=== PATIENT | male | born 1975 | race Caucasian/White ===

== ENCOUNTER 2025-01-11 09:10 | Day surgery (SDC) | payer OTHER, SELFPAY ==
[2025-01-09 13:46] VITALS: BMI 27.6
--- NOTE | 2025-01-10 15:28 | ESHP_ITS ---
RE: ALEXIS SMART : 1975 DATE OF ADMISSION: 01/10/2025 HISTORY OF PRESENT ILLNESS: The patient is from [facility]. He is a 48-year-old gentleman with undescended right testis. PHYSICAL EXAMINATION: Clinical examination reveals: HEENT: Normal. NECK: Supple. LUNGS: Clear. CARDIOVASCULAR: Heart sounds are normal. ABDOMEN: Soft without any organomegaly, guarding, or rigidity. EXTREMITIES: His left testis is down in the scrotum. The right scrotum is empty. In the right groin, it is difficult to identify if there is any testis. IMPRESSION: Undescended right testis, which is not palpable. PLAN: Right testis exploration through the inguinal approach and possible right orchiectomy. Plan, procedure, risks, and complications have been discussed with the patient. The patient has understood and agreed to proceed. Thank you very much for your kind referral. cc: [facility] DT: 13:15:28 TT: 15:26:00 Ref: [id number] - TID: [id number]
[2025-01-11] VITALS (8 sets, daily range): BP systolic 135–151; BP diastolic 89–103; PULSE 80–102; RESP 15–19; TEMP 36.9–37.2; O2SAT 95–100; BMI 28.2
[2025-01-11] MEDS: RINGERS LACTATED 1000 ML 1,000 ML 20 ML IV (10:32)
--- NOTE | 2025-01-11 13:23 | SUR.PHASEI ---
1322 Patient arrived to recovery resting comfortably in [facility], on oxygen 8L via oxy mask, breathing unlabored, vital signs stable, denies pain, dressing intact right upper groin; sutures, adaptic, amador, gauze, medpore tape, no bleeding noted, denies nausea, patient accompanied by a inventory technician report received from Steve QUIÑONES and Teodoro ALMARAZ
--- NOTE | 2025-01-11 14:25 | SUR.PHASEII ---
1425 Patient meets discharge criteria from recovery, awake and alert, breathing unlabored, vital signs stable, denies pain, dressing intact; no bleeding noted, patient ate two jellos, an applesauce, pudding and drinking 7up, tolerated well, denies nausea, patient able to dress himself into his clothing, discharge instructions given to patient and patient caregiver, caregiver signed discharge instructions. Patient given all his belongings prior to discharge, transported to waiting room to await transportation; patient is accompanied by caregiver and officer.
--- NOTE | 2025-01-14 16:46 | ESOP_ITS ---
RE: ALEXIS SMART : 1975 DATE OF OPERATION: 01/11/2025 PREOPERATIVE DIAGNOSIS: The patient from [facility] with developmental disability, history of nonpalpable undescended right testis. POSTOPERATIVE DIAGNOSIS: The patient from [facility] with developmental disability, history of nonpalpable undescended right testis. PROCEDURE PERFORMED: Right testicular exploration and right radical orchiectomy. ANESTHESIA: General by Mr. Teodoro CRNA. INDICATION: The patient is a 48-year-old gentleman from [facility] with developmental disability. He has a nonpalpable undescended right testis. On examination, I was not able to find definite testis on the right scrotum or the right inguinal canal. The left testis is down in the scrotum and is somewhat atrophic. The patient was now scheduled to have right testis exploration and possible right orchiectomy. Planned procedure, risks, and complications have been discussed with the patient. The patient understood them and agreed to proceed. DESCRIPTION OF PROCEDURE: After the patient was brought to the operating table under adequate general anesthesia given by Mr. Teodoro CRNA, he was placed in a supine position. Parts were prepped and draped in the usual fashion. Right inguinal incision was then made approximately 6 cm long. Skin and subcutaneous tissues were incised. Hemostasis was achieved. External oblique aponeurosis was then opened in the direction of the incision opening the right external ring. Careful inspection of the inguinal canal revealed the testis lying above the external ring. This was about 1 cm long testis and the spermatic cord was identified. This was dissected to the internal ring. We decided to remove the right testis, which is undescended. Clamps were placed on vas deferens and spermatic cord at the internal ring and testis with the spermatic cord was removed at the internal ring. The vas deferens and spermatic cord were ligated using 2-0 chromic catgut. Complete hemostasis was obtained. External oblique aponeurosis was then closed with continuous sutures of 3-0 Vicryl. Subcutaneous tissue was closed with 3-0 chromic catgut sutures. Skin was closed with amador. Local anesthetic was injected at the site of skin for the relief of pain. The patient tolerated the entire procedure well and left the room in good condition. Sponge count and needle count at the end of the procedure was found to be correct. Estimated blood loss was approximately 5 mL. cc: [facility] DT: 13:05:45 TT: 17:30:00 Ref: [id number] - TID: [id number]
== END 2025-01-11 14:25 | disposition home or self-care (01) ==
PROVIDERS: Referring Provider Surgery; Visit Provider Surgery
PROC: (CPT 55110; principal; 2025-01-11 11:45)
PROC: (CPT 54520; 2025-01-11 11:45)
DX: Q53.10 Unspecified undescended testicle, unilateral (principal); N50.0 Atrophy of testis
CPT/HCPCS: 54520; A4217; A4649; J0131; J0690; J2250; J2704; J3010; J3490; J7120; L8330; A9270